=== PATIENT | male | born 1980 | race Caucasian/White ===

== ENCOUNTER 2019-12-19 09:16 | Emergency (ER) | payer OTHER, BC ==
[~2019-12-19] VITALS: Ht 182.9 cm; Wt 109.0 kg
[~2019-12-19 09:16] MED LIST: IBUPROFEN600 MG PO; NORCO1 TA1 PO; TRAMADOL HCL50 MG PO
[2019-12-19 10:32] LABS: HEMATOCRIT 45.2 % (39.0-50.0); HEMOGLOBIN 15.3 g/dl (14.0-18.0); IMMATURE GRANULOCYTES 0.6 % (0.0-5.0); MEAN CELL VOLUME 88.1 fL CALC (80.0-100.0); MEAN CORPUSCULAR HGB 29.8 pG CALC (26.0-32.0); MEAN CORPUSCULAR HGB CONC 33.8 g/dL CAL (32.0-36.0); NEUT# 9.25 thou/uL (1.82-7.42); RED BLOOD COUNT 5.13 mill/uL (4.70-6.10); RED CELL DISTRI WIDTH 12.3 % (11.5-15.5)
[2019-12-19 10:52] LABS: ANION GAP 18 (6-22 (CALC)); BUN 19 mg/dL (9-20); BUN/CREATININE RATIO 17 (12-20 (CALC)); CARBON DIOXIDE 26 mmol/l (22-30); CHLORIDE 100 mmol/l (95-108); CREATININE 1.1 mg/dL (0.7-1.3); GFR > 60 ML/MIN (>=60 (CALC)); GFR FOR AFR.AMER. > 60 ML/MIN (>=60 (CALC)); POTASSIUM 4.6 mmol/l (3.5-5.1)
[2019-12-19 11:08] LABS: SODIUM 139 mmol/l (137-146)
[2019-12-19] MEDS ORDERED: PENICILLN VK500 M1 PO (12:57)
[2019-12-19 13:36] VITALS: BP 139/82
== END 2019-12-19 13:48 | disposition home or self-care (01) | DRG 153 ==
LOC: ED 09:16
PROVIDERS: Family Medicine
DX: J02.0 Streptococcal pharyngitis (principal); Z20.828 Contact with and (suspected) exposure to other viral communicable diseases
CPT/HCPCS: Q9967

== ENCOUNTER 2020-03-10 06:03 | Emergency (ER) | payer OTHER, BC ==
[~2020-03-10] VITALS: Ht 182.9 cm; Wt 102.0 kg
[~2020-03-10 06:03] MED LIST changes: +PENICILLN VK500 M1 PO
[2020-03-10 07:02] LABS: HEMATOCRIT 42.4 % (39.0-50.0); HEMOGLOBIN 14.2 g/dl (14.0-18.0); IMMATURE GRANULOCYTES 0.3 % (0.0-5.0); MEAN CELL VOLUME 87.6 fL CALC (80.0-100.0); MEAN CORPUSCULAR HGB 29.3 pG CALC (26.0-32.0); MEAN CORPUSCULAR HGB CONC 33.5 g/dL CAL (32.0-36.0); NEUT# 2.05 thou/uL (1.82-7.42); RED BLOOD COUNT 4.84 mill/uL (4.70-6.10); RED CELL DISTRI WIDTH 12.2 % (11.5-15.5)
[2020-03-10] MEDS ORDERED: ZITHROMAX250 MG PO (07:07)
[2020-03-10 07:21] LABS: ALBUMIN 4.4 g/dL (3.2-5.0); ALKALINE PHOSPHATASE 68 u/l (38-126); ANION GAP 12 (6-22 (CALC)); BILIRUBIN, TOTAL 0.4 mg/dL (0.0-1.4); BUN 17 mg/dL (9-20); BUN/CREATININE RATIO 15 (12-20 (CALC)); CARBON DIOXIDE 28 mmol/l (22-30); CHLORIDE 100 mmol/l (95-108); CREATININE 1.2 mg/dL (0.7-1.3); GFR > 60 ML/MIN (>=60 (CALC)); GFR FOR AFR.AMER. > 60 ML/MIN (>=60 (CALC)); LIPASE 129 u/l (23-300); POTASSIUM 4.3 mmol/l (3.5-5.1); SGOT/AST 32 u/l (17-59); SODIUM 135 mmol/l (137-146); TOTAL PROTEIN 7.2 g/dL (6.3-8.2)
[2020-03-10] MEDS ORDERED: CHERATUSSIN PO (07:33)
[2020-03-10 08:05] LABS: URINE BILIRUBIN - DIPSTICK NEGATIVE (NEGATIVE); URINE BLOOD DIPSTICK TRACE-INTACT (NEGATIVE); URINE COLOR YELLOW; URINE GLUCOSE - DIPSTICK NEGATIVE (NEGATIVE); URINE KETONE NEGATIVE (NEGATIVE); URINE LEUK ESTERASE NEGATIVE (NEGATIVE); URINE NITRITE - DIPSTICK NEGATIVE (Negative); URINE PROTEIN - DIPSTICK NEGATIVE (NEG-TRACE); URINE SPECIFIC GRAVITY >=1.030; URINE UROBILINOGEN - DIPSTICK 0.2 E.U./dL (0.2)
[2020-03-10] MEDS ORDERED: ZOFRAN4 M1 PO (08:31)
[2020-03-10] MEDS ORDERED: DOXYCYC MONO100 M1 PO (08:31)
[2020-03-10 09:25] VITALS: BP 116/74
--- NOTE | 2020-03-11 08:11 | NUR ---
Notified patient of positive Covid results. Patient denies SOB, but does c/o cough. Advised patient to return to ED with difficulty breathing or other urgent needs. Advised patient to quarantine until [facility] contacts him with further instructions. Patient verbalized understanding.
== END 2020-03-10 09:25 | disposition home or self-care (01) | DRG 179 ==
LOC: ED 06:03
DX: U07.1 COVID-19 (principal); J98.8 Other specified respiratory disorders; R19.7 Diarrhea, unspecified

== ENCOUNTER 2020-10-17 10:55 | Emergency (ER) | payer OTHER, BC ==
[~2020-10-17 10:55] MED LIST changes: +CHERATUSSIN PO; +DOXYCYC MONO100 M1 PO; +ZITHROMAX250 MG PO; +ZOFRAN4 M1 PO
[2020-10-17] MEDS ORDERED: AMOX/K CLAV875 M1 PO (12:00)
[2020-10-17 12:07] VITALS: BP 122/75
== END 2020-10-17 12:08 | disposition home or self-care (01) | DRG 153 ==
LOC: ED 10:55
DX: J02.0 Streptococcal pharyngitis (principal); Z20.822 Contact with and (suspected) exposure to COVID-19

== ENCOUNTER 2022-06-04 22:02 | Emergency (ER) | payer OTHER, BC ==
[~2022-06-04] VITALS: Ht 182.9 cm; Wt 114.0 kg
[~2022-06-04 22:02] MED LIST changes: +AMOX/K CLAV875 M1 PO
[2022-06-04 22:14] VITALS: BP 134/103
[2022-06-04 22:15] VITALS: BP 145/100
[2022-06-04 22:31] VITALS: BP 148/97
[2022-06-04] MEDS ORDERED: VOLTAREN75 MG PO (23:16)
[2022-06-04] MEDS ORDERED: LORTAB5 PO (23:16)
[2022-06-05 00:10] VITALS: BP 148/97
== END 2022-06-05 00:10 | disposition home or self-care (01) | DRG 563 ==
LOC: ED 22:02
PROC: 2W3SX1Z Immobilization of Right Foot using Splint (ICD-10-PCS; principal; 2022-06-04)
DX: S82.891A Other fracture of right lower leg, initial encounter for closed fracture (principal); W01.0XXA Fall on same level from slipping, tripping and stumbling without subsequent striking against object, initial encounter

== ENCOUNTER 2022-10-04 13:18 | Emergency (ER) | payer OTHER ==
[~2022-10-04] VITALS: Ht 182.9 cm; Wt 110.0 kg
[~2022-10-04 13:18] MED LIST changes: +LORTAB5 PO; +VOLTAREN75 MG PO
[2022-10-04 13:27] VITALS: BP 134/96
[2022-10-04 13:30] VITALS: BP 140/97
[2022-10-04] MEDS ORDERED: CEFDINIR300 MG PO (13:41)
[2022-10-04 14:00] VITALS: BP 122/92
[2022-10-04 14:29] VITALS: BP 122/92
== END 2022-10-04 14:35 | disposition home or self-care (01) | DRG 605 ==
LOC: ED 13:18
PROC: 0HQLXZZ Repair Left Lower Leg Skin, External Approach (ICD-10-PCS; principal; 2022-10-04)
DX: S81.812A Laceration without foreign body, left lower leg, initial encounter (principal); W22.8XXA Striking against or struck by other objects, initial encounter; F17.200 Nicotine dependence, unspecified, uncomplicated